=== PATIENT | female | born 1955 ===

== ENCOUNTER 2018-10-30 08:33 | Outpatient (CLI) | payer OTHER | END 2018-10-30 15:00 | disposition home or self-care (01) | LOC: SONOGRAMA 08:33 | DX: E04.1 Nontoxic single thyroid nodule (principal) ==

== ENCOUNTER 2023-07-18 09:41 | Outpatient (CLI) | payer OTHER | END 2023-07-18 09:44 | disposition home or self-care (01) | LOC: SONOGRAMA 09:41 | PROVIDERS: ATTEND Pathology Anatomic Pathology & Clinical Pathology | DX: D34 Benign neoplasm of thyroid gland (principal); E07.89 Other specified disorders of thyroid; E04.1 Nontoxic single thyroid nodule ==

== ENCOUNTER 2024-06-15 10:11 | Outpatient (CLI) | payer OTHER | END 2024-06-15 10:22 | disposition home or self-care (01) | LOC: SONOGRAMA 10:11 | PROVIDERS: ATTEND Pathology Anatomic Pathology & Clinical Pathology | DX: D34 Benign neoplasm of thyroid gland (principal); E04.1 Nontoxic single thyroid nodule ==